=== PATIENT | male | born 1990 | race Caucasian/White ===

== ENCOUNTER 2019-02-10 09:19 | Inpatient (IN) | payer OTHER ==
[2019-02-10 09:24] VITALS: BMI 36.6
--- NOTE | 2019-02-10 12:13 | ED PDOC ---
HPI: General Adult Time Seen by Provider: 02/10/19 09:36 Chief Complaint (Nursing): Lower Extremity Problem/Injury Chief Complaint (Provider): Lower Extremity Problem/Injury History Per: Patient History/Exam Limitations: no limitations Additional Complaint(s): 28 y/o male brought in by the police presents to the ED due to screaming in the streets. Patient was evaluated for schizophrenia which patient denies, but does think he has it. Patient is complaining of constant knee pain that hes been having it for a long time. Patient denies hearing voices or any other complaints at this time. PMD: none provided Past Medical History Reviewed: Historical Data, Nursing Documentation, Vital Signs Vital Signs: Last Vital Signs Temp 98.6 F 02/10/19 09:23 Pulse 113 H 02/10/19 09:23 Resp 18 02/10/19 09:23 BP 158/114 H 02/10/19 09:23 Pulse Ox 99 02/10/19 09:23 Primary Care Provider: FAMILY PROVIDER,NO - Medical History PMH: Schizophrenia Denies: Diabetes, Hepatitis, HIV, HTN, Chronic Kidney Disease, Seizures, Sexually Transmitted Disease - Family History Family History: States: Unknown Family Hx - Home Medications Home Medications: Ambulatory Orders Medication Instructions Recorded No Known Home Med 02/10/19 - Allergies Allergies/Adverse Reactions: Allergies Allergy/AdvReac Type Severity Reaction Status Date / Time No Known Allergies Allergy Verified 02/10/19 09:34 Review of Systems ROS Statement: Except As Marked, All Systems Reviewed And Found Negative Musculoskeletal: Positive for: Other (Knee pain) Physical Exam - Reviewed Nursing Documentation Reviewed: Yes Vital Signs Reviewed: Yes - Physical Exam Appears: Positive for: Well (Appears internally preoccupied. ), Non-toxic, No A cute Distress Head Exam: Positive for: ATRAUMATIC, NORMAL INSPECTION, NORMOCEPHALIC Skin: Positive for: Normal Color, Warm, Dry Eye Exam: Positive for: EOMI, Normal appearance, PERRL ENT: Positive for: Normal ENT Inspection Neck: Positive for: Normal, Painless ROM, Supple Cardiovascular/Chest: Positive for: Regular Rate, Rhythm. Negative for: Murmur Respiratory: Positive for: Normal Breath Sounds. Negative for: Wheezing Gastrointestinal/Abdominal: Positive for: Normal Exam, Soft. Negative for: Tenderness Back: Positive for: Normal Inspection. Negative for: L CVA Tenderness, R CVA Tenderness Extremity: Positive for: Normal ROM. Negative for: Tenderness (left knee), Swelling (left knee) Neurological/Psych: Positive for: Awake, Alert, Normal Tone, Oriented (x3). Negative for: Motor/Sensory Deficits - Laboratory Results Result Diagrams: 02/10/19 12:40 02/10/19 12:40 - ECG O2 Sat by Pulse Oximetry: 99 Medical Decision Making Medical Decision Making: Time: 1131 Initial Impression: Abnormal behavior in public and is internally occupied now. Will do crisis evaluation with work up, Tylenol for knee pain, and reassess. Initial Plan: -EKG -Alcohol serum -BMP -Drug screen -CBC -Chest x-ray -Tylenol 325mg -Crisis evaluation -Admit to hospital Pt medically optimized for admission to psychiatry. Scribe Attestation: Documented by Sarahy Ramos, acting as a scribe for Marilee Alvarenga Provider Scribe Attestation: All medical record entries made by the Scribe were at my direction and personally dictated by me. I have reviewed the chart and agree that the record accurately reflects my personal performance of the history, physical exam, medical decision making, and the department course for this patient. I have also personally directed, reviewed, and agree with the discharge instructions and disposition. Disposition - Clinical Impression Clinical Impression: Schizophrenia - Disposition Disposition Time: 11:32 Condition: STABLE
[2019-02-10 13:12] LABS: BASO # 0.1 K/uL (0.0-0.2); BASO % 0.7 % (0.0-2.0); EOS % 0.2 % (0.0-4.0); HEMOGLOBIN 15.7 g/dL (12.0-18.0); LYMPH # 1.9 K/uL (1.0-4.3); LYMPH % 17.5 % (20.0-40.0); MEAN CORPUSCULAR HEMOGLOBIN 30.1 pg (27.0-31.0); MEAN PLATELET VOLUME 8.8 fl (7.2-11.7); MONO # 1.1 K/uL (0.0-0.8); MONO % 9.8 % (0.0-10.0); NEUT # 7.8 K/uL (1.8-7.0); NEUT % 71.8 % (50.0-75.0); NRBC % 0.1 % (0.0-0.0); RBC 5.21 Mil/uL (4.40-5.90); RED CELL DISTRIBUTION WIDTH 13.1 % (11.5-14.5); WHITE BLOOD COUNT 10.9 K/uL (4.8-10.8)
[2019-02-10 13:23] LABS: BLOOD UREA NITROGEN 12 mg/dl (9-20); CALCIUM 8.9 mg/dL (8.4-10.2); GFR NON-AFRICAN AMERICAN > 60
[2019-02-10 13:42] LABS: BARBITURATES, UR NEGATIVE (NEGATIVE); BENZODIAZEPINES, UR NEGATIVE (NEGATIVE); OPIATES, UR NEGATIVE (NEGATIVE); PHENCYCLIDINE, UR NEGATIVE (NEGATIVE)
--- NOTE | 2019-02-10 14:30 | CARD ---
APPROVED REPORT Date of service: 02/10/2019 EKG Measurement Heart [id number] MI [id number] <Conclusion> Normal sinus rhythm Normal ECG
[2019-02-10] MEDS ORDERED: DiphenhydrAMINE 50 mg/ml Inj IM PRN (14:49)
[2019-02-10] MEDS ORDERED: Magnesium Hydroxide Susp 30 ml UD PO PRN (14:49)
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
--- NOTE | 2019-02-10 15:07 | RAD ---
Date of service: 02/10/2019 HISTORY: possible admission COMPARISON: No prior. FINDINGS: LUNGS: No active pulmonary disease. PLEURA: No significant pleural effusion identified, no pneumothorax apparent. CARDIOVASCULAR: No atherosclerotic calcification present No radiographic findings to suggest acute or significant cardiovascular disease. OSSEOUS STRUCTURES: No significant abnormalities. VISUALIZED UPPER ABDOMEN: Normal. OTHER FINDINGS: None. IMPRESSION: No active disease.
[2019-02-10 16:09] VITALS: O2SAT 99
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
--- NOTE | 2019-02-11 12:41 | PCM.PYCHPN ---
Psychiatric Progress Note - Psychiatric Progress Note Patient seen today, length of contact: Pt evaluated, case discussed w/ team, chart reviewed Patient Chief Complaint: "Nothing is wrong with me" Problems Identified/Issues Discussed: Patient is currently refusing all medications. He has poor insight/judgment. He told television script writer that he does not have a mental illness and he is only here because his mom is making him get treatment. He denies acute depression/anxiet y/AH/VH to television script writer, but he is evasive and guarded. He did make tangential, disorganized comments about him creating a formula to create light waves, but it was difficult to understand what he was referring to. Medication Change: No (Patient currently refusing medications) Medical Record Reviewed: Yes Consults ordered or reviewed: Medicine consult Mental Status Examination - Cognitive Function Orientation: Person, Place, Situation, Time Memory: Intact Decription of patient's judgement and insights: Poor I/J - Mood Mood: Anxious - Affect Affect: Constricted - Speech Speech: Appropriate - Formal Thought Process Formal Thought Process: Delusions, Paranoia, Circumstantial Psychotic Thoughts and Behaviors: +Delusions - Suicidal Ideation Suicidal Ideation: No - Homicidal Ideation Homicidal Ideation: No Goal/Treatment Plan - Goal/Treatment Plan Need for Continued Stay: Remain at risks for inpatient hospitalization, Discharge may exacerbated symptoms Progress Toward Problem(s) and Goals/Treatment Plan: Schizophrenia -Patient currently refusing medications; will continue to provide psychoeducation and offer the patient treatment with medications -Medicine consult -Individual and group therapy -Psychoeducation -Disposition planning
--- NOTE | 2019-02-12 10:02 | PCM.PYCHPN ---
Psychiatric Progress Note - Psychiatric Progress Note Patient seen today, length of contact: Pt evaluated, case discussed w/ team, chart reviewed Patient Chief Complaint: "I'm fine." Problems Identified/Issues Discussed: Patient agreed to take the Abilify last night and today. He said "might as well take the medications so I can go home." He has poor insight into his mental illness. He denies acute depression/anxiety/AH/VH to rfp writer, but continues to be evasive and guarded. He continues to be tangential and disorganized at times and seems grandiose when discussing his knowledge of certain topics, such as studies and martial arts. Medication Change: No Medical Record Reviewed: Yes Consults ordered or reviewed: Medicine consult Mental Status Examination - Cognitive Function Orientation: Person, Place, Situation, Time Memory: Intact Decription of patient's judgement and insights: Poor I/J - Mood Mood: Neutral - Affect Affect: Constricted - Speech Speech: Appropriate - Formal Thought Process Formal Thought Process: Delusions, Paranoia, Circumstantial Psychotic Thoughts and Behaviors: +Delusions - Suicidal Ideation Suicidal Ideation: No - Homicidal Ideation Homicidal Ideation: No Goal/Treatment Plan - Goal/Treatment Plan Need for Continued Stay: Remain at risks for inpatient hospitalization, Discharge may exacerbated symptoms Progress Toward Problem(s) and Goals/Treatment Plan: Schizophrenia -Continue Abilify -Medicine consult -Individual and group therapy -Psychoeducation -Disposition planning
--- NOTE | 2019-02-12 11:23 | CP.PCM.CON ---
<Marian Parada - Last Filed: 02/12/19 12:14> History of Present Illness - History of Present Illness History of Present Illness: Medical Consult 28-year-old male seen and examined bedside. Denies PMH and current medication. No complaints at this time. PMD:denies PMH: denies Surg Hx: left bicep 2014 Family Hx: HTN & depression maternmal, denies paternal Allergy: NKDA Meds: denies Social: occasional social tobacco and marijuanna smoker, denies illict drugs and etoh. 1 daughter 6 years old. Review of Systems - Review of Systems Review of Systems: all other systems reviewed and negative unless noted in HPI Past Patient History - Infectious Disease Hx of Infectious Diseases: None - Past Medical History & Family History Past Medical History?: No - Past Social History Smoking Status: Light Smoker < 10 Cigarettes Daily - CARDIAC Hx Hypertension: No - PULMONARY Hx Tuberculosis: No - NEUROLOGICAL Hx Seizures: No - HEENT Hx HEENT Problems: No - RENAL Hx Chronic Kidney Disease: No - ENDOCRINE/METABOLIC Hx Endocrine Disorders: No - HEMATOLOGICAL/ONCOLOGICAL Hx Human Immunodeficiency Virus (HIV): No - INTEGUMENTARY Hx Dermatological Problems: No - MUSCULOSKELETAL/RHEUMATOLOGICAL Hx Musculoskeletal Disorders: No - GASTROINTESTINAL Hx Gastrointestinal Disorders: No - GENITOURINARY/GYNECOLOGICAL Hx Sexually Transmitted Disorders: No - PSYCHIATRIC Hx Schizophrenia: Yes - SURGICAL HISTORY Hx Surgeries: Yes Hx Orthopedic Surgery: Yes (left arm surgery) - ANESTHESIA Hx Anesthesia: Yes Meds Allergies/Adverse Reactions: Allergies Allergy/AdvReac Type Severity Reaction Status Date / Time No Known Allergies Allergy Verified 02/10/19 09:34 - Medications Medications: Current Medications Acetaminophen (Tylenol 325mg Tab) 650 mg PO Q4 PRN PRN Reason: Pain, moderate (4-7) Aripiprazole (Abilify) 10 mg PO HS [facility] Last Admin: 02/11/19 21:27 Dose: 10 mg Diphenhydramine HCl (Benadryl) 50 mg IM Q6 PRN PRN Reason: Extrapyramidal S/S Unable PO Diphenhydramine HCl (Benadryl) 50 mg PO Q6 PRN PRN Reason: Extrapyramidal Symptoms Haloperidol (Haldol) 5 mg PO Q4 PRN PRN Reason: Agitation Haloperidol Lactate (Haldol) 5 mg IM Q4 PRN PRN Reason: Agitation, Unable to Take PO Lorazepam (Ativan) 2 mg IM Q4 PRN PRN Reason: Anxiety/Agitation,Unable PO Lorazepam (Ativan) 2 mg PO Q4 PRN PRN Reason: Anxiety/Agitation Magnesium Hydroxide (Milk Of Magnesia) 30 ml PO HS PRN PRN Reason: Constipation Trazodone HCl (Desyrel) 100 mg PO HS PRN PRN Reason: Insomnia Physical Exam - Constitutional Appears: Non-toxic, No Acute Distress - Head Exam Head Exam: NORMAL INSPECTION - Eye Exam Eye Exam: Normal appearance - Respiratory Exam Respiratory Exam: Respiratory Distress, NORMAL BREATHING PATTERN - Cardiovascular Exam Cardiovascular Exam: REGULAR RHYTHM - GI/Abdominal Exam GI & Abdominal Exam: Soft. absent: Tenderness - Neurological Exam Neurological exam: Alert, Normal Gait, Oriented x3 - Psychiatric Exam Psychiatric exam: Normal Affect, Normal Mood - Skin Skin Exam: Normal Color, Warm Results - Vital Signs Recent Vital Signs: Last Vital Signs Temp 98.7 F 02/12/19 09:25 Pulse 87 02/12/19 09:25 Resp 16 02/12/19 09:25 BP 155/99 H 02/12/19 09:25 Pulse Ox 99 02/10/19 16:10 - Labs Result Diagrams: 02/10/19 12:40 02/10/19 12:40 Labs: Laboratory Results - last 24 hr 02/11/19 08:38 RPR Nonreactive Assessment & Plan - Assessment and Plan (Free Text) Assessment: 28 yo male with no PMH admitted for schizophrenia assessed bedside for medical management. Plan: Schizophrenia -management as per psych DVT Prophylaxis - ambulatory <German Allen - Last Filed: 02/13/19 10:19> Meds - Medications Medications: Current Medications Acetaminophen (Tylenol 325mg Tab) 650 mg PO Q4 PRN PRN Reason: Pain, moderate (4-7) Aripiprazole (Abilify) 10 mg PO HS CLAUDIA Last Admin: 02/12/19 21:14 Dose: 10 mg Diphenhydramine HCl (Benadryl) 50 mg IM Q6 PRN PRN Reason: Extrapyramidal S/S Unable PO Diphenhydramine HCl (Benadryl) 50 mg PO Q6 PRN PRN Reason: Extrapyramidal Symptoms Haloperidol (Haldol) 5 mg PO Q4 PRN PRN Reason: Agitation Haloperidol Lactate (Haldol) 5 mg IM Q4 PRN PRN Reason: Agitation, Unable to Take PO Lorazepam (Ativan) 2 mg IM Q4 PRN PRN Reason: Anxiety/Agitation,Unable PO Lorazepam (Ativan) 2 mg PO Q4 PRN PRN Reason: Anxiety/Agitation Magnesium Hydroxide (Milk Of Magnesia) 30 ml PO HS PRN PRN Reason: Constipation Trazodone HCl (Desyrel) 100 mg PO HS PRN PRN Reason: Insomnia Last Admin: 02/12/19 21:14 Dose: 100 mg Results - Vital Signs Recent Vital Signs: Last Vital Signs Temp 98.5 F 02/13/19 09:40 Pulse 89 02/13/19 09:40 Resp 18 02/13/19 09:40 BP 159/96 H 02/13/19 09:40 Pulse Ox 99 02/10/19 16:10 - Labs Result Diagrams: 02/10/19 12:40 02/10/19 12:40 Attending/Attestation - Attestation I have personally seen and examined this patient.: Yes I have fully participated in the care of the patient.: Yes I have reviewed all pertinent clinical information: Yes Notes (Text): 02/13/19 10:18 Patient seen and examined with resident. Case discussed and agreed with assessment.
--- NOTE | 2019-02-13 15:36 | PCM.PYCHPN ---
Psychiatric Progress Note - Psychiatric Progress Note Patient seen today, length of contact: Pt evaluated, case discussed w/ team, chart reviewed Patient Chief Complaint: I am calmer with the medicine Problems Identified/Issues Discussed: pt evaluated with treatment team, less guarded and les paranoid, no reported side effects of abilify, discussed increasing the dose to 15mg and possibly starting abilify maintenna, pt denied command hallucinations, denied active thoughts of self harm on the unit Medical Problems: at least three inpatient hospitalizations DSM 5 Symptoms Update: schizophrenia paranoid type Medication Change: Yes (increase abilify) Medical Record Reviewed: Yes Mental Status Examination - Cognitive Function Orientation: Person, Place, Situation, Time Memory: Intact Attention: WNL Concentration: Poor Decription of patient's judgement and insights: poor - Mood Mood: Neutral - Affect Affect: Constricted - Speech Speech: Appropriate - Formal Thought Process Formal Thought Process: Delusions, Paranoia, Circumstantial - Suicidal Ideation Suicidal Ideation: No - Homicidal Ideation Homicidal Ideation: No Goal/Treatment Plan - Goal/Treatment Plan Need for Continued Stay: Remain at risks for inpatient hospitalization, Discharge may exacerbated symptoms Progress Toward Problem(s) and Goals/Treatment Plan: increase abilify to 15mg with plan to start abilify maintena to ensure compliance group and supportive therapy obtain collateral information from family
--- NOTE | 2019-02-14 15:45 | PCM.PYCHPN ---
Psychiatric Progress Note - Psychiatric Progress Note Patient seen today, length of contact: Pt evaluated, case discussed w/ team, chart reviewed Patient Chief Complaint: I feel better Problems Identified/Issues Discussed: pt evaluatedreported beetr mood, brighter affect, less guarded and less paranoid, no reported side effects of increasing abilify, discussed increasing the dose , pt denied command hallucinations, denied active thoughts of self harm on the unit Medical Problems: at least three inpatient hospitalizations Medication Change: No Medical Record Reviewed: Yes Mental Status Examination - Cognitive Function Orientation: Person, Place, Situation, Time Memory: Intact Attention: WNL Concentration: Poor Decription of patient's judgement and insights: poor - Mood Mood: Neutral - Affect Affect: Constricted - Speech Speech: Appropriate - Formal Thought Process Formal Thought Process: Delusions, Paranoia, Circumstantial - Suicidal Ideation Suicidal Ideation: No - Homicidal Ideation Homicidal Ideation: No Goal/Treatment Plan - Goal/Treatment Plan Need for Continued Stay: Remain at risks for inpatient hospitalization, Discharge may exacerbated symptoms Progress Toward Problem(s) and Goals/Treatment Plan: abilify to 15mg with plan to start abilify maintena to ensure compliance group and supportive therapy
--- NOTE | 2019-02-15 15:58 | PCM.PYCHPN ---
Psychiatric Progress Note - Psychiatric Progress Note Patient seen today, length of contact: Pt evaluated, case discussed w/ team, chart reviewed Patient Chief Complaint: I am good Problems Identified/Issues Discussed: pt evaluated seen in day room, superficially cooperative, with limited insight into illness compliant with medications , no reported side effects, discussed increasing abilify, psychoeducation provided about importance of medications compliance, pt denid command hallucinations, denied suicidal or homicidal ideation Medical Problems: at least three inpatient hospitalizations DSM 5 Symptoms Update: schizoaffective disorder cannabis use Medication Change: No Medical Record Reviewed: Yes Mental Status Examination - Cognitive Function Orientation: Person, Place, Situation, Time Memory: Intact Attention: WNL Concentration: Poor Decription of patient's judgement and insights: poor - Mood Mood: Neutral - Affect Affect: Constricted - Speech Speech: Appropriate - Formal Thought Process Formal Thought Process: Delusions, Paranoia, Circumstantial - Suicidal Ideation Suicidal Ideation: No - Homicidal Ideation Homicidal Ideation: No Goal/Treatment Plan - Goal/Treatment Plan Need for Continued Stay: Remain at risks for inpatient hospitalization, Discharge may exacerbated symptoms Progress Toward Problem(s) and Goals/Treatment Plan: increase abilify to 20mg group and supportive therapy
[2019-02-16 09:24] VITALS: RESP 19
--- NOTE | 2019-02-16 16:45 | PCM.PYCHPN ---
Psychiatric Progress Note - Psychiatric Progress Note Patient seen today, length of contact: Pt evaluated, case discussed w/ team, chart reviewed Patient Chief Complaint: pt reports some improvement anxiety, pt seen in milieu, staff report pt rx adherent Medical Problems: per chartt Diagnostic Results: per psychiatry per medicine per nursing per social worker psychiatric DSM 5 Symptoms Update: somewhat improved mood Medication Change: No Medical Record Reviewed: Yes Consults ordered or reviewed: pt being followed by medical team Mental Status Examination - Cognitive Function Orientation: Person, Place, Situation, Time Memory: Intact Attention: WNL Concentration: Poor Decription of patient's judgement and insights: impaired - Mood Mood: Neutral - Affect Affect: Constricted - Speech Speech: Appropriate - Formal Thought Process Formal Thought Process: Delusions, Paranoia, Circumstantial - Suicidal Ideation Suicidal Ideation: No - Homicidal Ideation Homicidal Ideation: No Goal/Treatment Plan - Goal/Treatment Plan Need for Continued Stay: Remain at risks for inpatient hospitalization, Discharge may exacerbated symptoms Progress Toward Problem(s) and Goals/Treatment Plan: inpt milieu adjust meds per clinical status discharge planning in progress Estimated Date of D/C: 02/21/19 - Smoking Cessation Smoking Cessation Initiated: No Reason for not providing: pt defers
[2019-02-17 08:51] VITALS: BP 155/84; PULSE 83
[2019-02-17 09:09] VITALS: TEMP 98.5
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
== END 2019-02-17 17:21 | disposition home or self-care (01) | DRG 750 ==
LOC: H.ER 09:19 → H.ERHOLD 11:32 → H.PSYCH 14:24
PROVIDERS: ADMIT Psychiatry & Neurology Psychiatry; ATTEND Psychiatry & Neurology Psychiatry
PROC: GZHZZZZ Group Psychotherapy (ICD-10-PCS; principal; 2019-02-10)
PROC: GZ58ZZZ Individual Psychotherapy, Cognitive-Behavioral (ICD-10-PCS; 2019-02-10)
DX: F20.0 Paranoid schizophrenia (principal); F12.10 Cannabis abuse, uncomplicated; F17.210 Nicotine dependence, cigarettes, uncomplicated; N62 Hypertrophy of breast

== ENCOUNTER 2019-02-25 18:10 | Emergency (ER) | payer MEDICARE, OTHER ==
[2019-02-25 18:10] VITALS: BMI 36.6
[2019-02-25 18:16] VITALS: RESP 16; TEMP 98.8; O2SAT 98
[2019-02-25 19:00] VITALS: PULSE 96
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
[2019-02-25 19:10] VITALS: BP 144/80
== END 2019-02-25 19:07 | disposition home or self-care (01) ==
LOC: H.ER 18:10
DX: F20.9 Schizophrenia, unspecified (principal); F17.200 Nicotine dependence, unspecified, uncomplicated